=== PATIENT | male | born 1945 | race African-American/Black ===

== ENCOUNTER 2023-05-22 16:14 | Observation (INO) | payer MEDICARE, SELFPAY ==
[2023-05-22] VITALS (12 sets, daily range): BP systolic 134–154; BP diastolic 80–93; PULSE 57–73; RESP 13–25; TEMP 36.5–36.8; O2SAT 98–100; BMI 28.5
--- NOTE | ~2023-05-22 | US_ITS ---
EXAMINATION: US venous doppler [facility] DATE: 05/23/2023 11:20 INDICATION: Chest pain. TECHNIQUE: Grayscale ultrasound images without and with compression and Doppler ultrasound images of the bilateral lower extremity veins were obtained. COMPARISON: None. FINDINGS: The visualized portions of right common femoral vein, profunda (deep) femoral vein, femoral vein, pop liteal vein, peroneal veins, posterior tibial veins, and greater saphenous vein outflow are patent. The visualized portions of left common femoral vein, profunda femoral vein, femoral vein, popliteal v ein, peroneal veins, posterior tibial veins, and greater saphenous vein outflow are patent. IMPRESSION: 1. No deep venous thrombosis. Reviewed, dictated and finalized at location A.
--- NOTE | ~2023-05-22 | CT_ITS ---
EXAMINATION: CTA chest PE protocol DATE: 05/22/2023 18:07 INDICATION: Midsternal chest pain. TECHNIQUE: Computed tomography angiography (CTA) of the chest was performed with 100 mL Omnipaque-350 intravenous contrast timed to evaluate the pulmonary arteries. Coronal maximum intensity projection 3D-reconstructions were created by the technologist. Automated exposure control and iterative reconst ruction technique were employed. The dose-length product was 695.45 mGy-cm. COMPARISON: None. FINDINGS: There are airspace opacities and groundglass opacities in right middle lobe, right lower lo be, and posterior segment right upper lobe, consistent with pneumonia. There is mild atelectasis in l eft lower lobe. A calcified right lung nodule and calcified right hilar lymph nodes are consistent wi th old granulomatous disease. No pleural effusion. The heart size is normal. No pericardial effusion. There are coronary artery calcifications. There are acute pulmonary emboli in right upper lobe and m edial segment right middle lobe. Calcifications in the liver consistent with old granulomatous diseas e. There are calcifications of the pancreas with dilatation of the main pancreatic duct, consistent w ith chronic pancreatitis. There are stones in the kidneys measuring up to 5 mm on the left. There is moderate thoracic spondylosis and severe cervical spondylosis. IMPRESSION: 1. Acute pulmonary emboli in right upper lobe and right middle lobe. 2. Right-sided pneumonia, worst in right middle lobe. Reviewed, dictated and finalized at location E.
--- NOTE | ~2023-05-22 | XR_ITS ---
EXAMINATION: XR chest 2V DATE: 05/22/2023 16:44 INDICATION: Chest pain. TECHNIQUE: Frontal and lateral views of the chest were obtained. COMPARISON: None. FINDINGS: There are airspace opacities in the lower lung zones. A calcified right lung nodule and becka cified right hilar lymph nodes are consistent with old granulomatous disease. No pleural effusion or pneumothorax. The heart size is normal. IMPRESSION: 1. Airspace opacities in the lower lung zones, consistent with atelectasis versus pneumonia. Reviewed, dictated and finalized at location E. IMPRESSION: 1. Airspace opacities in the lower lung zones, consistent with atelectasis vers us pneumonia.
--- NOTE | 2023-05-22 16:16 | ECG_ITS ---
Measurements Intervals [place] Rate: 69 P: 40 MI: 178 QRS: -41 QRSD: 96 T: 5 QT: 379 QTc: 407 Interpretive Statements SINUS RHYTHM ATRIAL PREMATURE COMPLEXES LEFT AXIS DEVIATION VOLTAGE CRITERIA FOR LVH CANNOT RULE OUT SEPTAL INFARCT, AGE INDETERMINATE BASELINE ARTIFACT- I, II, III, AVR, AVL, AVF, V1-V2 ABNORMAL ECG NO PREVIOUS ECG AVAILABLE FOR COMPARISON Electronically Signed On 05-22-2023 16:28:13 CDT by Doug Barillas D.O.
[2023-05-22 16:33] LABS: Basophils Percent Auto 0.6 % (0.2-1.2); Eosinophils Absolute Auto 0.1 K/mm3 (0-0.3); Eosinophils Percent Auto 2.8 % (0-4.4); Hematocrit 42.7 % (42.0-52.0); Hemoglobin 13.6 g/dL (14.0-18.0); Immature Granulocyte Absolute 0.02 K/mm3 (0.00-0.031); Immature Granulocyte Percent A 0.4 % (0-0.5); Lymphocytes Absolute Auto 2.37 K/mm3 (0.9-3.2); Lymphocytes Percent Auto 48.2 % (18.3-44.2); Mean Corpuscular HGB Conc 31.9 g/dl (32-36); Mean Corpuscular Hemoglobin 28.9 pg (26-34); Mean Corpuscular Volume 90.9 fl (80-100); Mean Platelet Volume 10.8 fl (7.4-10.4); Monocytes Absolute Auto 0.4 K/mm3 (0.1-0.6); Monocytes Percent Auto 7.7 % (2.6-8.5); Neutrophils Percent Auto 40.3 % (45.5-73.1); Platelet Count Result 206 k/mm3 (150-375); Red Cell Distribution Width 13.3 % (11.5-14.5); White Blood Count 4.9 K/mm3 (4.5-10.0)
[2023-05-22 16:42] LABS: INR 0.9; Prothrombin Time 12.9 Seconds (11.1-14.7)
[2023-05-22 16:43] LABS: Partial Thromboplastin Time 25.1 SECONDS (22.3-36.8)
[2023-05-22 16:44] LABS: Alanine Aminotransferase 27 U/L (6-50); Albumin Level 4.6 g/dL (3.5-5.1); Alkaline Phosphatase 49 U/L (38-126); Anion Gap 11 mmol/L (8-16); Aspartate Amino Transferase 26 U/L (17-59); Bilirubin,Total 0.7 mg/dL (0.2-1.3); Blood Urea Nitrogen 17 mg/dL (9-20); Calcium 9.2 mg/dL (8.4-10.2); Carbon Dioxide 25 mmol/L (22-30); Chloride 103 mmol/L (98-107); Estimated CRCL calculation 53 ml/min; Estimated Glomerular Filt Rate > 60; Glucose 205 mg/dL (65-110); Lipase 75 U/L (23-300); Potassium 4.1 mmol/L (3.4-5.0); Sodium 139 mmol/L (137-145)
[2023-05-22] MEDS: ASPIRIN 81 MG CHEWABLE TABLET 324 MG PO (16:45)
[2023-05-22 16:54] LABS: Troponin I < 0.012 ng/mL (0.000-0.034)
--- NOTE | 2023-05-22 17:13 | ED.CHESTPAIN ---
HPI - Chest Pain General Chief Complaint: Chest Pain <Samantha Marshall PA-C - Last Filed: 05/22/23 19:22> Stated Complaint: chest pain <Samantha Marshall PA-C - Last Filed: 05/22/23 19:22> Time Seen by Provider: 05/22/23 16:30 <Samantha Marshall PA-C - Last Filed: 05/22/23 19:22> Source: patient <Samantha Marshall PA-C - Last Filed: 05/22/23 19:22> Mode of arrival: EMS <Samantha Marshall PA-C - Last Filed: 05/22/23 19:22> Limitations: other (Poor historian) <Samantha Marshall PA-C - Last Filed: 05/22/23 19:22> History of Present Illness HPI narrative: This is a 78-year-old male that presents to the emergency department for an episode of chest pain just prior to arrival. Reports he was laying down when he started to feel a substernal chest tightness. This lasted for about an hour. Denies any associated symptoms. Denies fever, cough, shortness of breath, or lower extremity edema. <Samantha Marshall PA-C - Last Filed: 05/22/23 19:22> Related Data Allergies/Adverse Reactions: Allergies Allergy/AdvReac Type Severity Reaction Status Date / Time No Known Allergies Allergy Verified 05/22/23 16:44 <Samantha Marshall PA-C - Last Filed: 05/22/23 19:22> Review of Systems Review of Systems: CONSTITUTIONAL: Denies fever CARDIOVASCULAR: Reports chest pain. Denies edema. RESPIRATORY: Denies cough or dyspnea. GASTROINTESTINAL: Denies nausea, vomiting <Samantha Marshall PA-C - Last Filed: 05/22/23 19:22> All systems reviewed & are unremarkable except as noted in HPI and below <Samantha Marshall PA-C - Last Filed: 05/22/23 19:22> [facility] Past Medical History Medical History: Medical History (Updated 05/22/23 @ 19:02 by Samantha Marshall PA-C) History of diabetes mellitus History of DVT (deep vein thrombosis) <Samantha Marshall PA-C - Last Filed: 05/22/23 19:22> Social History Social History: Social History (Updated 05/22/23 @ 17:15 by Samantha Marshall PA-C) Smoking status: Former smoker Alcohol intake: former Substance use: never Lack of Transportation: No Lack of Food: Never True Current Housing: I Have Housing Concerned About Future Housing: No Difficulty Paying Gas/Electric Bills: No Difficulty Paying for Meds: No Currently Unemployed: No Education: Trade/Vocational Certificate Difficulty w/ Childcare or Family Care: No Spiritual care concerns: No <Samantha Marshall PA-C - Last Filed: 05/22/23 19:22> Exam Narrative: GENERAL: Well-appearing, well-nourished, and in no acute distress. HEAD: Normocephalic, atraumatic. EYES: EOMI. ENT: Nares clear, no rhinorrhea or epistaxis. Mucous membranes moist. Oropharynx without tonsillar hypertrophy exudate or other lesions. NECK: Supple. No adenopathy or masses. No JVD CHEST: Clear to auscultation. No respiratory distress. No wheezes rales or rhonchi HEART: Regular rate and rhythm. No murmur heard. Normal peripheral pulses. EXTREMITIES: Normal range of motion. No edema. SKIN: Warm, dry, no rash. NEURO: No focal deficits. Alert and oriented x3. PSYCH: Normal mood and affect <Samantha Marshall PA-C - Last Filed: 05/22/23 19:22> Course Course Emergency Course: Patient and family updated on work-up and need for admission for further management <Samantha Marshall PA-C - Last Filed: 05/22/23 19:22> GAMEROOM TECHNICIAN/PA Physician Supervision For this patient encounter, I reviewed the GAMEROOM TECHNICIAN or PA documentation, treatment plan, and medical decision making; and I had [id number] time with this patient. <Meño Albright MD - Last Filed: 05/22/23 21:17> Consultations Consultation #1: Spoke with hospitalist about patient and work-up who accepts admission <Samantha Marshall PA-C - Last Filed: 05/22/23 19:22> Date: 05/22/23 <Samantha Marshall PA-C - Last Filed: 05/22/23 19:22> Vital Signs Vital signs: Vital Signs Temperature 98.3 F 05/22/23 16:14 Pulse Rate 62 05/22/23 16:14 Respir
[2023-05-22 17:30] LABS: D Dimer 1.17 ug/mL (<0.48)
[2023-05-22 17:41] LABS: NT Pro B Type Natriuretic Pept 64 pg/mL (19.9-100)
--- NOTE | 2023-05-22 18:32 | PC.NURSE ---
Per Provider Rolando, no cultures needed prior to antibiotics.
[2023-05-22] MEDS: AZITHROMYCIN 500 MG/NS 250 ML 500 MG/250 ML BAG 250 MG IVPB (19:05)
[2023-05-22] MEDS: ENOXAPARIN 100 MG/ML SYRINGE 95 MG SUB-Q (19:05)
[2023-05-22 19:39] LABS: Troponin I < 0.012 ng/mL (0.000-0.034)
--- NOTE | 2023-05-22 20:39 | ADMGEN ---
This patient, Terrance Jamison, was admitted to [facility] Surg Room 313-01 at 1951. Patient/family oriented to hospital policies and general routines including ID bracelet, bed and alarms, visiting hours, pain management, procedures, bathroom and other care routines, personal items, smoking policy, room service/diet, and visiting hours. Information on how to activate the Rapid Response Team has been discussed. Patient/Family are encouraged to report perceived risks to care and to ask questions if they do not understand what they are told or what they should do.
[2023-05-22 21:39] LABS: Glucose Point of Care 151 mg/dl (65-105)
--- NOTE | 2023-05-22 22:29 | PM.IMHP ---
H&P: HPI History of Present Illness Date/Time: 05/22/23 19:30 Chief Complaint: Chest pain. Narrative: This is a very pleasant 78-year-old male with hypertension, hyperlipidemia, hypothyroidism, type 2 diabetes mellitus, and history of DVT presented to the emergency department via EMS from home for evaluation of chest pain. The patient provides the following history and his provides additional information with the patient's permission. He has been complaining of occasional dizziness and lightheadedness over the past couple of weeks, mainly with position changes. The last couple of days he has just not felt well and he did not go to [facility] today. While she was at [facility] he developed a pressure-like discomfort in the mid chest associated with sweats and mild shortness of breath. His symptoms persisted for approximately 3 to 4 hours before he came in for evaluation. Chest CTA showed acute pulmonary emboli in the right upper lobe and right middle lobe as well as right-sided pneumonia. With further questioning he does endorse mild right lower extremity swelling however that seems like a chronic finding from a previous clot. Regarding the pneumonia he has not had a fever to his knowledge and he denies sinus congestion, chest congestion, productive cough, sore throat, nausea, vomiting, and diarrhea. He is not having any chest pain at this time. Review of Systems Review of Systems: Twelve systems were reviewed and are negative except for as per HPI. [facility] Past Medical History Medical History (Updated 05/23/23 @ 15:11 by Inge Reddy PA-C) Deep venous thrombosis Hyperlipidemia Hypertension Hypothyroidism Insulin dependent type 2 diabetes mellitus Obstructive sleep apnea Surgical History Surgical History (Updated 05/23/23 @ 15:11 by Inge Reddy PA-C) History of thyroidectomy Family History Family History (Updated 05/23/23 @ 15:11 by Inge Reddy PA-C) Other Diabetes mellitus Hypertension Social History Social History (Updated 05/23/23 @ 15:12 by Inge Reddy PA-C) Social History: Surrogate medical decision maker: Cesia Polancoe, spouse. Code status: Full code. Smoking status: Former smoker Alcohol intake: former Substance use: never Lack of Transportation: No Lack of Food: Never True Current Housing: I Have Housing Concerned About Future Housing: No Difficulty Paying Gas/Electric Bills: No Difficulty Paying for Meds: No Currently Unemployed: No Education: Trade/Vocational Certificate Difficulty w/ Childcare or Family Care: No Additional living arrangements comments: Lives with spouse in [place]. 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 Spiritual care concerns: No Meds Home Medications and Allergies Home Medications Medication Instructions Recorded Confirmed Type empagliflozin 25 mg tablet 25 mg PO DAILY 05/22/23 05/22/23 History (Jardiance) gabapentin 100 mg capsule 100 mg PO DAILY 05/22/23 05/22/23 History insulin glargine 100 unit/mL (3 100 unit subcut DAILY 05/22/23 05/22/23 History mL) subcutaneous pen (Lantus Solostar U-100 Insulin) insulin lispro 100 unit/mL 100 unit subcut DAILY 05/22/23 05/22/23 History subcutaneous solution (Humalog U-100 Insulin) levothyroxine 200 mcg tablet 200 mcg PO DAILY 05/22/23 05/22/23 History lisinopril 10 mg tablet 10 mg PO DAILY 05/22/23 05/22/23 History lisinopril 5 mg tablet 5 mg PO DAILY 05/22/23 05/22/23 History metformin 500 mg tablet,extended 500 mg PO DAILY 05/22/23 05/22/23 History release 24 hr metoprolol tartrate 25 mg tablet 25 mg PO DAILY 05/22/23 05/22/23 History nitroglycerin 0.4 mg/hr 0.4 mg transdermal PRN 05/22/23 05/22/23 History transdermal 24 hour patch Allergies Allergy/AdvReac Type Severity Reaction Status Date / Time No Known Allergies Allergy Verified 05/22/23 16:44 Vital Signs Vital Signs - 24 hr 05/22/23 16:14
[2023-05-22 23:49] LABS: Troponin I < 0.012 ng/mL (0.000-0.034)
[2023-05-23] VITALS (14 sets, daily range): BP systolic 117–141; BP diastolic 66–89; PULSE 47–69; RESP 14–16; TEMP 36.5–36.6; O2SAT 95–100
--- NOTE | 2023-05-23 00:41 | ECHO_ITS ---
Patient Info Name: Terrance Jamison Age: 78 years : 1945 Gender: Male Ht: 72 in Wt: 210 lbs BSA: 2.22 m2 HR: 61 bpm BP: 128 / 87 mmHg Heart Rhythm: Sinus Rhythm Technical Quality: Fair Exam Date: 05/23/2023 2:10 PM Exam Location: [facility] Pulmonary Exam Room: [facility] Patient Status: Inpatient Admit Date: 05/22/2023 Staff Ordering Physician: Inge Reddy PA-C Machine Feed Operator: Brenna Walton RDCS Attending Provider: Marcus Hargrove MD Referring Physician: Maureen ARNDT; Exam Type: CA echo dop color flow w con Study Info Indications - chest pain pe Complete two-dimentional, color flow and Doppler transthoracic echocardiogram is performed with agitated saline and with contrast to opacify the left ventricle and to improve the delineation of the left ventricle endocardial borders. Contrast/Agitated Saline Contrast/Ag. Saline: Definity Amount: 2.00 ml Administered By: Brenna Walton [facility] Existing IV Access: Yes IV Access Condition: patent with no signs of infiltration Summary 1. Normal left and right ventricular systolic function and dimension. 2. Trivial MR. 3. No stigmata of right ventricular pressure overload. Left Ventricle Left ventricular chamber dimension is normal. Left ventricular systolic function is normal, estimated at 60-65%. The left ventricular diastolic function is grade I diastolic dysfunction. Right Ventricle Right ventricular chamber dimension is normal. Right ventricular systolic function is normal. Left Atria Left atrial chamber dimension is normal. Right Atria Right atrial chamber dimension is normal. Aortic Valve The aortic valve is trileaflet. There is mild aortic valve sclerosis. Pulmonic Valve The pulmonic valve is not well visualized. Mitral Valve The mitral valve has normal leaflets. There is trace mitral valve regurgitation. Tricuspid Valve The tricuspid valve leaflets are normal. Pericardium/Pleural The pericardium appears normal. Aorta The aortic root size at the sinus of Valsalva is normal. Left Ventricular Outflow Tract Name Value Normal LVOT 2D LVOT Diameter 2.03 cm LVOT Doppler LVOT Peak Gradient 4 mmHg LVOT Mean Gradient 2 mmHg LVOT VTI 21.46 cm LVOT VTI/AV VTI Ratio 0.99 LVOT Stroke Volume 69.72 ml LVOT CO 14.37 l/min LVOT CI 6.48 L/min/m2 Pulmonic Valve Name Value Normal RVOT Doppler RVOT Peak Gradient 1 mmHg PV Doppler PV Peak Gradient 2 mmHg Mitral Valve Name Value Normal
[2023-05-23 06:38] LABS: Hematocrit 38.3 % (42.0-52.0); Hemoglobin 12.3 g/dL (14.0-18.0); Mean Corpuscular HGB Conc 32.1 g/dl (32-36); Mean Corpuscular Hemoglobin 29.3 pg (26-34); Mean Corpuscular Volume 91.2 fl (80-100); Mean Platelet Volume 11.5 fl (7.4-10.4); Platelet Count Result 198 k/mm3 (150-375); Red Cell Distribution Width 13.6 % (11.5-14.5); White Blood Count 4.8 K/mm3 (4.5-10.0)
[2023-05-23] MEDS: LEVOTHYROXINE SODIUM 100 MCG TABLET 200 MCG PO (06:56)
[2023-05-23 06:58] LABS: Anion Gap 8 mmol/L (8-16); Blood Urea Nitrogen 14 mg/dL (9-20); Calcium 8.7 mg/dL (8.4-10.2); Carbon Dioxide 26 mmol/L (22-30); Chloride 105 mmol/L (98-107); Estimated CRCL calculation 53 ml/min; Estimated Glomerular Filt Rate > 60; Glucose 142 mg/dL (65-110); Magnesium 1.9 mg/dL (1.6-2.3); Potassium 3.7 mmol/L (3.4-5.0); Sodium 139 mmol/L (137-145)
[2023-05-23 07:57] LABS: Glucose Point of Care 151 mg/dl (65-105)
[2023-05-23] MEDS: GABAPENTIN 100 MG CAPSULE PO (08:58)
[2023-05-23] MEDS: EMPAGLIFLOZIN 25 MG TABLET PO (08:58)
[2023-05-23] MEDS: lisinopriL 5 MG TABLET PO (08:58)
[2023-05-23] MEDS: METOPROLOL TARTRATE 25 MG TABLET PO ×2 (08:59→20:55)
[2023-05-23 11:40] LABS: Glucose Point of Care 154 mg/dl (65-105)
[2023-05-23] MEDS: ENOXAPARIN 100 MG/ML SYRINGE 95 MG SUB-Q ×2 (12:42→20:55)
[2023-05-23] MEDS: PERFLUTREN LIPID MICROSPHERES 1.5 ML VIAL DILUTED TO 10 ML TOTAL VOLUME IV PUSH (14:40)
--- NOTE | 2023-05-23 16:15 | PM.IMPN ---
Progress Note: A&P Assessment and Plan (1) Pulmonary embolism on right: Code(s): I26.99 - Other pulmonary embolism without acute cor pulmonale Status: Acute Assessment and Plan: Seems to be unprovoked. Patient denies malignancy, recent travel, immobility, surgery, recent trauma Lovenox Will transition to [facility] at d/c Not requiring oxygen ECHO results pending for heart strain (2) Pneumonia: Qualifiers: Laterality: right Lung location: middle lobe of lung Pneumonia type: due to unspecified organism Qualified Code(s): J18.9 - Pneumonia, unspecified organism Code(s): J18.9 - Pneumonia, unspecified organism Status: Acute Assessment and Plan: CAP treatment with Rocephin and azithromycin (3) Insulin dependent type 2 diabetes mellitus: Code(s): E11.9 - Type 2 diabetes mellitus without complications; Z79.4 - jail (current) use of insulin Status: Acute Assessment and Plan: Taking lantus, lispro, jardance and metformin at home. Holding oral medications while inpatient Accu checks DM diet Sliding scale as needed (4) Hypertension: Code(s): I10 - Essential (primary) hypertension Status: Acute Assessment and Plan: Well controlled on home regimen. Medications restarted Blood pressures reviewed (5) Hyperlipidemia: Code(s): E78.5 - Hyperlipidemia, unspecified Status: Acute Assessment and Plan: Taking Rosuvastatin 20 mg PO nightly per pharmacy review. Okay to restart while admitted (6) Hypothyroidism: Code(s): E03.9 - Hypothyroidism, unspecified Status: Acute Assessment and Plan: Hx of hyperthyroidism with goiter removal -Levothyroxine 200 mcg PO daily -resumed Subjective Date/time seen: 05/23/23 16:15 Interval history: HPI obtained from chart This is a very pleasant 78-year-old male with hypertension, hyperlipidemia, hypothyroidism, type 2 diabetes mellitus, and history of DVT presented to the emergency department via EMS from home for evaluation of chest pain. The patient provides the following history and his provides additional information with the patient's permission. He has been complaining of occasional dizziness and lightheadedness over the past couple of weeks, mainly with position changes. The last couple of days he has just not felt well and [facility] not [facility]. [facility] at [facility] he developed a pressure-like discomfort in the mid chest associated with sweats and mild shortness of breath. His symptoms persisted for approximately 3 to 4 hours before he came in for evaluation. Chest CTA showed acute pulmonary emboli in the right upper lobe and right middle lobe as well as right-sided pneumonia. With further questioning he does endorse mild right lower extremity swelling however that seems like a chronic finding from a previous clot. Regarding the pneumonia he has not had a fever to his knowledge and he denies sinus congestion, chest congestion, productive cough, sore throat, nausea, vomiting, and diarrhea. He is not having any chest pain at this time. 05/23: Patient is seen today sitting up in his chair in no acute distress. He appears well, is not requiring oxygen. On admission he was found to have a right-sided pneumonia isolated to right middle lobe as well as an acute pulmonary emboli to the right upper lobe and right middle lobe. He really does not complain of any symptoms of pneumonia denying shortness of breath, productive cough, fevers, chills, or congestion. He does say that he has had intermittent problem with dizziness but he says that this has been going on for the last 4 years after he had a fall and he hit the left side of his head. Since that fall he has been unable to see out of his left eye. He states that the dizziness was increased these last few weeks. He denies nausea, vomiting, diarrhea and constipation. His echo has been completed and th
[2023-05-23 16:29] LABS: Glucose Point of Care 160 mg/dl (65-105)
[2023-05-23] MEDS: AZITHROMYCIN 500 MG/NS 250 ML 500 MG/250 ML BAG 250 MG IVPB (19:08)
[2023-05-23] MEDS: INSULIN GLARGINE (*BKC) 100 UNITS/ML 30 UNITS SUB-Q (20:56)
[2023-05-23 21:23] LABS: Glucose Point of Care 168 mg/dl (65-105)
[2023-05-24] VITALS (10 sets, daily range): BP systolic 118–163; BP diastolic 68–95; PULSE 47–68; RESP 14–22; TEMP 35.9–36.1; O2SAT 94–100
[2023-05-24] MEDS: LEVOTHYROXINE SODIUM 100 MCG TABLET 200 MCG PO (05:45)
[2023-05-24 06:41] LABS: Basophils Percent Auto 0.7 % (0.2-1.2); Eosinophils Absolute Auto 0.1 K/mm3 (0-0.3); Eosinophils Percent Auto 2.1 % (0-4.4); Hematocrit 41.3 % (42.0-52.0); Hemoglobin 13.1 g/dL (14.0-18.0); Lymphocytes Absolute Auto 2.11 K/mm3 (0.9-3.2); Lymphocytes Percent Auto 49.1 % (18.3-44.2); Mean Corpuscular HGB Conc 31.7 g/dl (32-36); Mean Corpuscular Hemoglobin 29.4 pg (26-34); Mean Corpuscular Volume 92.8 fl (80-100); Mean Platelet Volume 11.2 fl (7.4-10.4); Monocytes Absolute Auto 0.3 K/mm3 (0.1-0.6); Monocytes Percent Auto 6.5 % (2.6-8.5); Neutrophils Absolute Auto 1.8 K/mm3 (1.3-6.7); Neutrophils Percent Auto 41.6 % (45.5-73.1); Platelet Count Result 185 k/mm3 (150-375); Red Blood Count 4.45 M/mm3 (4.6-6.20); Red Cell Distribution Width 13.4 % (11.5-14.5); White Blood Count 4.3 K/mm3 (4.5-10.0)
[2023-05-24 06:53] LABS: Alanine Aminotransferase 19 U/L (6-50); Alkaline Phosphatase 45 U/L (38-126); Anion Gap 9 mmol/L (8-16); Aspartate Amino Transferase 20 U/L (17-59); Bilirubin,Total 0.6 mg/dL (0.2-1.3); Blood Urea Nitrogen 13 mg/dL (9-20); Calcium 8.7 mg/dL (8.4-10.2); Carbon Dioxide 25 mmol/L (22-30); Chloride 105 mmol/L (98-107); Estimated CRCL calculation 58 ml/min; Estimated Glomerular Filt Rate > 60; Glucose 105 mg/dL (65-110); Potassium 3.6 mmol/L (3.4-5.0); Sodium 139 mmol/L (137-145)
[2023-05-24 07:33] LABS: Prothrombin Time 13.2 Seconds (11.1-14.7)
[2023-05-24 07:35] LABS: Partial Thromboplastin Time 40.5 SECONDS (22.3-36.8)
[2023-05-24 07:48] LABS: Glucose Point of Care 99 mg/dl (65-105)
[2023-05-24] MEDS: ENOXAPARIN 100 MG/ML SYRINGE 95 MG SUB-Q (09:46)
[2023-05-24] MEDS: EMPAGLIFLOZIN 25 MG TABLET PO (09:46)
[2023-05-24] MEDS: METOPROLOL TARTRATE 25 MG TABLET PO (09:46)
[2023-05-24] MEDS: lisinopriL 5 MG TABLET PO (09:46)
[2023-05-24] MEDS: INSULIN ASPART (*BKC) 100 UNITS/ML SUB-Q ×2 (09:46→12:05)
[2023-05-24] MEDS: ROSUVASTATIN 20 MG TABLET PO (09:46)
[2023-05-24] MEDS: GABAPENTIN 100 MG CAPSULE PO (09:51)
--- NOTE | 2023-05-24 10:41 | PM.DS ---
DS: Admitting Diagnosis Discharge Date TuesdayMay 24 Admitting Diagnosis Hyperlipidemia DS: Discharge Diagnosis Discharge Diagnosis (1) Pulmonary embolism on right: Code(s): I26.99 - Other pulmonary embolism without acute cor pulmonale Status: Acute Assessment and Plan: Seems to be unprovoked. Patient denies malignancy, recent travel, immobility, surgery, recent trauma Lovenox Will transition to [facility] at d/c Not requiring oxygen ECHO results pending for heart strain (2) Pneumonia: Qualifiers: Laterality: right Lung location: middle lobe of lung Pneumonia type: due to unspecified organism Qualified Code(s): J18.9 - Pneumonia, unspecified organism Code(s): J18.9 - Pneumonia, unspecified organism Status: Acute Assessment and Plan: CAP treatment with Rocephin and azithromycin (3) Insulin dependent type 2 diabetes mellitus: Code(s): E11.9 - Type 2 diabetes mellitus without complications; Z79.4 - medical terminologist (current) use of insulin Status: Acute Assessment and Plan: Taking lantus, lispro, jardance and metformin at home. Holding oral medications while inpatient Accu checks DM diet Sliding scale as needed (4) Hypertension: Code(s): I10 - Essential (primary) hypertension Status: Acute Assessment and Plan: Well controlled on home regimen. Medications restarted Blood pressures reviewed (5) Hyperlipidemia: Code(s): E78.5 - Hyperlipidemia, unspecified Status: Acute Assessment and Plan: Taking Rosuvastatin 20 mg PO nightly per pharmacy review. Okay to restart while admitted (6) Hypothyroidism: Code(s): E03.9 - Hypothyroidism, unspecified Status: Acute Assessment and Plan: Hx of hyperthyroidism with goiter removal -Levothyroxine 200 mcg PO daily -resumed DS: Summary Hospital Course Reason for hospitalization: PE and pneumonia Hospital Course: This is a very pleasant 78-year-old male with hypertension, hyperlipidemia, hypothyroidism, type 2 diabetes mellitus, and history of DVT presented to the emergency department via EMS from home for evaluation of chest pain. The patient provides the following history and his provides additional information with the patient's permission. He has been complaining of occasional dizziness and lightheadedness over the past couple of weeks, mainly with position changes. The last couple of days he has just not felt well and he did not go to [facility] today. While [facility] was at [facility] he developed a pressure-like discomfort in the mid chest associated with sweats and mild shortness of breath. His symptoms persisted for approximately 3 to 4 hours before he came in for evaluation. Chest CTA showed acute pulmonary emboli in the right upper lobe and right middle lobe as well as right-sided pneumonia. With further questioning he does endorse mild right lower extremity swelling however that seems like a chronic finding from a previous clot. Regarding the pneumonia he has not had a fever to his knowledge and he denies sinus congestion, chest congestion, productive cough, sore throat, nausea, vomiting, and diarrhea. He is not having any chest pain at this time. 05/23:? Patient is seen today sitting up in his chair in no acute distress.? He appears well, is not requiring oxygen.? On admission he was found to have a right-sided pneumonia isolated to right middle lobe as well as an acute pulmonary emboli to the right upper lobe and right middle lobe.? He really does not complain of any symptoms of pneumonia denying shortness of breath, productive cough, fevers, chills, or congestion.? He does say that he has had intermittent problem with dizziness but he says that this has been going on for the last 4 years after he had a fall and he hit the left side of his head.? Since that fall he has been unable to see out of his left eye.? He states that the dizziness was increased these last
[2023-05-24 11:31] LABS: Glucose Point of Care 111 mg/dl (65-105)
[2023-05-29 06:13] LABS: Legionella pneumophila Ag Ur Not Detected (Not Detected)
[2023-05-30 13:01] LABS: Pneumococcal Antigen Urine Not Detected (Not Detected)
[2023-05-31 15:09] LABS: Mycoplasma IgM Antibody Titer 98 U/mL (<770)
== END 2023-05-24 15:10 | disposition home or self-care (01) ==
LOC: ANHED 19:02 → ANH3MEDSUR 19:52
PROVIDERS: Emergency Medicine; Nurse Practitioner Acute Care; Physician Assistant; Admitting Provider Internal Medicine; Emergency Provider Physician Assistant; PCP Internal Medicine; Visit Provider Student in an Organized Health Care Education/Training Program
DX: I26.99 Other pulmonary embolism without acute cor pulmonale (principal); J18.9 Pneumonia, unspecified organism; E11.9 Type 2 diabetes mellitus without complications; I10 Essential (primary) hypertension; E78.5 Hyperlipidemia, unspecified; E03.9 Hypothyroidism, unspecified; D64.9 Anemia, unspecified; R42 Dizziness and giddiness; R60.0 Localized edema; R94.31 Abnormal electrocardiogram [ECG] [EKG]; R79.1 Abnormal coagulation profile; Z86.718 Personal history of other venous thrombosis and embolism; Z87.891 Personal history of nicotine dependence; Z79.4 Long term (current) use of insulin; Z79.899 Other long term (current) drug therapy
CPT/HCPCS: 36415; 71046; 71275; 80048; 80053; 82948; 83690; 83735; 83880; 84484; 85025; 85027; 85380; 85610; 85730; 86738; 87449; 87899; 93005; 93970; 96365; 96366; 96367; 96372; 96375; 99285; A9270; C8929; G0378; J0456; J0696; J1650; J1815; Q9957; Q9967